=== PATIENT | female | born 1950 | race Caucasian/White ===

== ENCOUNTER → 2024-06-15 16:50 | Outpatient (REF) | payer MEDICARE, OTHER, SELFPAY | LOC: WDC 16:50 | PROVIDERS: ATTENDING PHYSICIAN Internal Medicine | DX: Z12.31 Encounter for screening mammogram for malignant neoplasm of breast (principal) | CPT/HCPCS: 77063; 77067 ==

== ENCOUNTER → 2024-09-30 09:43 | Outpatient (REF) | payer MEDICARE, OTHER, SELFPAY | LOC: WDC 09:43 | PROVIDERS: ATTENDING PHYSICIAN Internal Medicine | DX: N64.4 Mastodynia (principal) | CPT/HCPCS: 76642; 77061; 77065 ==

== ENCOUNTER → 2025-02-02 09:19 | Outpatient (REF) | payer MEDICARE, OTHER, SELFPAY ==
[2025-02-02 10:15] LABS: % Immature Granulocytes 1.2 % (0-0.5); % Lymphocytes 26.9 % (20.5-51.1); % Monocytes 11.9 % (1.7-9.3); Absolute Basophils 0.1 10^3/uL (0-0.2); Absolute Eosinophils 0.2 10^3/uL (0-0.7); Absolute Immature Granulocytes 0.1 10^3/uL (0-0.05); Absolute Lymphocytes 1.3 10^3/uL (1.2-3.4); Absolute Monocytes 0.6 10^3/uL (0.1-0.6); Absolute Neutrophils 2.8 10^3/uL (1.4-6.5); Hematocrit 40.1 % (37.0-47.0); Hemoglobin 13.5 g/dL (12.0-16.0); Mean Corp Hgb Conc. 33.7 g/dL (33.0-37.0); Mean Corpuscular Hgb 32.8 pg (27.0-31.0); Mean Corpuscular Volume 97.6 fL (81.0-99.0); Mean Platelet Volume 9.5 fL (7.4-10.4); Nucleated Red Blood Cells % 0 %; Platelet Count 297 10^3/uL (130-400); Red Blood Cell Count 4.11 10^6/uL (4.20-5.40); Red Cell Dist. Width 12.9 % (11.5-14.5)
[2025-02-02 10:59] LABS: ALT (SGPT) 12 U/L (0-35); AST (SGOT) 19 U/L (14-36); Albumin 3.9 g/dl (3.5-5.0); Alkaline Phosphatase 76 U/L (38-126); Blood Urea Nitrogen 15 mg/dl (7-17); Calcium 9.3 mg/dl (8.4-10.2); Carbon Dioxide 29 mmol/L (22-30); Chloride 103 mmol/L (98-107); Glucose 102 mg/dl (70-99); Potassium 4.8 mmol/L (3.5-5.1); Sodium 137 mmol/L (135-145); Total Bilirubin 0.7 mg/dl (0.2-1.3); Total Cholesterol 223 mg/dl (50-199); Total Protein 6.3 g/dl (6.3-8.2); Triglyceride 51 mg/dl (10-149); Very Low Density Lipoprotein 10 mg/dl (0-30); eGFR > 60.00
[2025-02-02 11:09] LABS: HDL Cholesterol 126 mg/dl; LDL Cholesterol, Calculated 87 mg/dl
[2025-02-02 11:14] LABS: Vitamin D, 25-OH*** 14.6 ng/mL (30-80)
[2025-02-02 11:28] LABS: TSH 2.98 uIU/ml (0.47-4.68)
[2025-02-02 11:36] LABS: Glycohemoglobin (HgbA1c) 5.6 % (4.0-5.6)
== END ==
LOC: REG 09:19
PROVIDERS: ATTENDING PHYSICIAN Internal Medicine
DX: Z01.818 Encounter for other preprocedural examination (principal); R73.03 Prediabetes; Z00.00 Encounter for general adult medical examination without abnormal findings; R53.83 Other fatigue; R73.01 Impaired fasting glucose; E55.9 Vitamin D deficiency, unspecified; E78.2 Mixed hyperlipidemia
CPT/HCPCS: 36415; 80053; 80061; 82306; 83036; 84443; 85025

== ENCOUNTER → 2025-02-09 10:00 | Outpatient (REF) | payer MEDICARE, OTHER, SELFPAY | LOC: HWRAD 10:00 | PROVIDERS: ATTENDING PHYSICIAN Internal Medicine | DX: R18.8 Other ascites (principal) | CPT/HCPCS: 76700 ==

== ENCOUNTER → 2025-02-17 09:22 | Outpatient (REF) | payer MEDICARE, OTHER, SELFPAY ==
[2025-02-17 11:28] LABS: IgA 275 mg/dl (70-400)
[2025-02-18 19:07] LABS: tTG IgA Antibody <1.02 FLU (0.00-4.99)
== END ==
LOC: RAD 09:22
PROVIDERS: ATTENDING PHYSICIAN Student in an Organized Health Care Education/Training Program; FAMILY PHYSICIAN Internal Medicine
DX: R14.0 Abdominal distension (gaseous) (principal)
CPT/HCPCS: 36415; 74018; 82784; 86364

== ENCOUNTER → 2025-04-06 11:27 | Outpatient (REF) | payer MEDICARE, OTHER, SELFPAY ==
[2025-04-07 19:01] LABS: CA 125 8.8 U/mL (0-35)
== END ==
LOC: REG 11:27
PROVIDERS: ATTENDING PHYSICIAN Hospitalist; FAMILY PHYSICIAN Internal Medicine
DX: R14.0 Abdominal distension (gaseous) (principal); R97.1 Elevated cancer antigen 125 [CA 125]
CPT/HCPCS: 36415; 86304

== ENCOUNTER → 2025-04-08 12:38 | Outpatient (REF) | payer MEDICARE, OTHER, SELFPAY | LOC: RAD 12:38 | PROVIDERS: ATTENDING PHYSICIAN Student in an Organized Health Care Education/Training Program; FAMILY PHYSICIAN Internal Medicine | DX: R14.0 Abdominal distension (gaseous) (principal); R10.9 Unspecified abdominal pain | CPT/HCPCS: 74177; Q9967 ==

== ENCOUNTER → 2025-07-25 15:35 | Outpatient (REF) | payer MEDICARE, OTHER, SELFPAY ==
[2025-07-25 16:41] LABS: ALT (SGPT) 13 U/L (0-35); AST (SGOT) 20 U/L (14-36); Albumin 4.8 g/dl (3.5-5.0); Alkaline Phosphatase 63 U/L (38-126); Blood Urea Nitrogen 13 mg/dl (7-17); Calcium 9.8 mg/dl (8.4-10.2); Carbon Dioxide 28 mmol/L (22-30); Chloride 102 mmol/L (98-107); Glucose 110 mg/dl (70-99); Potassium 4.6 mmol/L (3.5-5.1); Sodium 137 mmol/L (135-145); Total Protein 7.3 g/dl (6.3-8.2); eGFR > 60.00
== END ==
LOC: REG 15:35
PROVIDERS: ATTENDING PHYSICIAN Internal Medicine
DX: R41.3 Other amnesia (principal); Z01.818 Encounter for other preprocedural examination; R73.03 Prediabetes; Z00.00 Encounter for general adult medical examination without abnormal findings; R53.83 Other fatigue; R73.01 Impaired fasting glucose; E55.9 Vitamin D deficiency, unspecified
CPT/HCPCS: 36415; 70470; 80053; Q9967

== ENCOUNTER → 2025-08-12 15:20 | Outpatient (REF) | payer MEDICARE, OTHER, SELFPAY | LOC: REG 15:20 | PROVIDERS: ATTENDING PHYSICIAN Nurse Practitioner Family; FAMILY PHYSICIAN Internal Medicine | DX: N95.1 Menopausal and female climacteric states (principal); R53.83 Other fatigue | CPT/HCPCS: 36415 ==

== ENCOUNTER → 2025-08-13 07:35 | Outpatient (REF) | payer MEDICARE, OTHER, SELFPAY ==
[2025-08-13 08:54] LABS: Hematocrit 43.3 % (37.0-47.0); Hemoglobin 14.7 g/dL (12.0-16.0); Mean Corp Hgb Conc. 33.9 g/dL (33.0-37.0); Mean Corpuscular Volume 97.3 fL (81.0-99.0); Nucleated Red Blood Cells % 0 %; Platelet Count 341 10^3/uL (130-400); Red Cell Dist. Width 12.5 % (11.5-14.5)
[2025-08-13 09:33] LABS: ALT (SGPT) 14 U/L (0-35); AST (SGOT) 21 U/L (14-36); Albumin 4.9 g/dl (3.5-5.0); Alkaline Phosphatase 74 U/L (38-126); Blood Urea Nitrogen 14 mg/dl (7-17); Calcium 9.6 mg/dl (8.4-10.2); Carbon Dioxide 28 mmol/L (22-30); Chloride 106 mmol/L (98-107); Glucose 93 mg/dl (70-99); Potassium 4.6 mmol/L (3.5-5.1); Sodium 140 mmol/L (135-145); Total Protein 7.5 g/dl (6.3-8.2); eGFR > 60.00
[2025-08-13 09:40] LABS: FSH 59.0 mIU/ml
[2025-08-13 09:41] LABS: Free T3 3.57 pg/ml (2.77-5.27)
[2025-08-13 09:54] LABS: TSH 1.44 uIU/ml (0.47-4.68)
== END ==
LOC: REG 07:35
PROVIDERS: ATTENDING PHYSICIAN Nurse Practitioner Family; FAMILY PHYSICIAN Internal Medicine
DX: N95.1 Menopausal and female climacteric states (principal); R53.83 Other fatigue
CPT/HCPCS: 36415; 80053; 82642; 82670; 83001; 84144; 84270; 84402; 84403; 84439; 84443; 84481; 85025

== ENCOUNTER → 2025-08-19 14:36 | Outpatient (REF) | payer MEDICARE, OTHER, SELFPAY | LOC: DHSLP 14:36 | PROVIDERS: ATTENDING PHYSICIAN Internal Medicine; FAMILY PHYSICIAN Internal Medicine | DX: G47.30 Sleep apnea, unspecified (principal); R06.83 Snoring | CPT/HCPCS: 95800 ==

== ENCOUNTER → 2025-08-31 10:10 | Outpatient (REF) | payer MEDICARE, OTHER, SELFPAY | LOC: HWWDC 10:10 | PROVIDERS: ATTENDING PHYSICIAN Nurse Practitioner; FAMILY PHYSICIAN Internal Medicine | DX: Z12.31 Encounter for screening mammogram for malignant neoplasm of breast (principal) | CPT/HCPCS: 77063; 77067 ==